=== PATIENT | male | born 1980 | race Caucasian/White ===

== ENCOUNTER 2019-05-07 09:16 | Outpatient (CLI) | payer OTHER ==
[2019-05-07] VITALS (18 sets, daily range): BP systolic 127–161; BP diastolic 47–103
== END 2019-05-07 23:59 | disposition home or self-care (01) ==
LOC: CARD DIAG 09:16
PROVIDERS: ATTEND Nurse Practitioner Family
DX: G43.909 Migraine, unspecified, not intractable, without status migrainosus (principal); Z99.81 Dependence on supplemental oxygen
CPT/HCPCS: 93660